=== PATIENT | female | born 1955 | race Caucasian/White ===

== ENCOUNTER 2017-09-10 16:38 | Emergency (ER) | payer OTHER ==
[~2017-09-10] VITALS: Ht 162.6 cm; Wt 69.4 kg
--- OUTSIDE RECORDS SUMMARY | ~2017-09-10 | XMS | Clinical Summary ---
Demographics + + + | Address | [address] | | | [place] [address] | + + + | Home Phone | | + + + | Preferred Language | Unknown | + + + | Marital Status | Single | + + + | Confucianism Affiliation | Unknown | + + + | Race | Unknown | + + + | Ethnic Group | Other Race | + + + Author + + + | Author | [facility] | + + + | Organization | [facility] | + + + | Address | Unknown | + + + | Phone | Unavailable | + + + Care Team Providers + +------+ + | Care Web Master Name | Role | Phone | + +------+ + PP | Unavailable | + +------+ + Source Comments ANGIE is fully live on both [facility] Amb[facility] and [facility] InPatient.[facility] Allergies Not on File Current Medications Not [...] | + + + + + | INFLUENZA VACCINE | | | | | (FLU SHOT) | 8 | | | + + + + + Results Not on filefrom Last 3 Months"
--- OUTSIDE RECORDS SUMMARY | ~2017-09-10 | XMS | Clinical Summary ---
Demographics + + + | Address | [address] | | | [place] [address] | + + + | Home Phone | | + + + | Preferred Language | Unknown | + + + | Marital Status | Single | + + + | Mormon Affiliation | Unknown | + + + | Race | Unknown | + + + | Ethnic Group | Other Race | + + + Author + + + | Author | [facility] | + + + | Organization | [facility] | + + + | Address | Unknown | + + + | Phone | Unavailable | + + + Care Team Providers + +------+ + | Care Raveler Name | Role | Phone | + +------+ + PP | Unavailable | + +------+ + Source Comments ANGIE is fully live on both [facility] Ambulatory and [facility] InPatient.[facility] Allergies Not on File Current Medications Not [...]
[~2017-09-10 16:38] MED LIST: ALLER-TEC10 MG PO; ASPIR-LOW81 MG PO; ASPIR-TRIN325 MG PO; BUDEPRION SR150 MG PO; BUSPIRONE HCL15 MG PO; BUSPIRONE HCL30 MG PO; CALCIUM 600 +1 EAC3 PO; DILTIAZEM 24HR240 MG PO; FIORINAL 50-321 EACH PO; FISH OIL 1,2001 EACH PO; FLUOXETINE HCL20 MG PO; K-TAB10 MEQ PO; LEVOTHYROXINE150 MCG PO; LORATADINE10 MG PO; MELOXICAM15 MG PO; MIRAPEX0.125 MG PO; NORCO 5-325 TA1 EACH PO; PRILOSEC20 MG PO; PULMICORT FLE180 MCG INH; TOPAMAX25 MG PO; TRAMADOL HCL50 MG PO; TRAZODONE HCL50 MG PO; VENTOLIN HFA18 GM INH; XANAX0.25 MG PO
[2017-09-10] MEDS ORDERED: LIOTHYRONINE SO5 MCG PO (17:03)
[2017-09-10] MEDS ORDERED: SUDAFED 12-HOU120 MG PO (17:05)
--- NOTE | 2017-09-11 06:53 | EKG ---
[facility] [address] [place], [place] [address] Signed Normal sinus rhythm Normal ECG No previous ECGs available Confirmed by SHUN LUONG MD ([id number]) on 09/11/2017 6:53:12 AM Electronically Signed By: SHUN LUONG MD 09/11/17 0653 PATIENT NAME: COLBY REA Electrocardiogram DATE OF : 51 PHYSICIAN: SHUN LUONG MD REPORT #: [id number] REPORT IS CONFIDENTIAL AND NOT TO BE RELEASED WITHOUT AUTHORIZATION
== END 2017-09-10 18:10 | disposition home or self-care (01) ==
LOC: ED 16:38
DX: G43.909 Migraine, unspecified, not intractable, without status migrainosus (principal); I10 Essential (primary) hypertension; Z88.8 Allergy status to other drugs, medicaments and biological substances; Z91.040 Latex allergy status; Z79.899 Other long term (current) drug therapy
CPT/HCPCS: 80053; 85025; 93005; 93010; 96374; 99283; J1885; J7030

== ENCOUNTER 2018-09-18 23:16 | Emergency (ER) | payer OTHER ==
[~2018-09-18] VITALS: Ht 162.6 cm; Wt 79.4 kg
--- OUTSIDE RECORDS SUMMARY | ~2018-09-18 | XMS | Clinical Summary ---
Demographics + + + | Address | [address] | | | [place] [address] | + + + | Home Phone | | + + + | Preferred Language | Unknown | + + + | Marital Status | Single | + + + | Gnosticism Affiliation | Unknown | + + + | Race | Unknown | + + + | Ethnic Group | Other Race | + + + Author + + + | Author | [facility] | + + + | Organization | [facility] | + + + | Address | Unknown | + + + | Phone | Unavailable | + + + Care Team Providers + +------+ + | Care Credit Or Loans Officer Name | Role | Phone | + +------+ + PP | Unavailable | + +------+ + Source Comments ANGIE is fully live on both [facility] Amb[facility] and [facility] InPatient.[facility] Allergies Not on File Current Medications Not on file Active Problems Not on file Social History + +-------+ +--------+------+ | Tobacco Use | Types | Packs/Day | Years | Date | | | | | Used | | + +-------+ +--------+------+ | Never Assessed | | | | | + +-------+ +--------+------+ + + + | Sex Assigned at | Date Recorded | | | | + + + | Not on file | | + + + Plan of Treatment + + + + + | Health Maintenance | Due Date | Last Done | Comments | + + + + + | Influenza (Flu) | | | | | vaccination (#1) | 8 | | | + + + + + | Pneumococcal (Adult) | | | | | (1 of 2 - PCV13) | 9 | | | + + + + + Results Not on filefrom Last 3 Months Insurance +-------+--------+ +------+ + + | Payer | Benefi | Subscriber | Type | Phone | Address | | | t Plan | ID | | | | | | / | | | | | | | Group | | | | | +-------+--------+ +------+ + + | MODA | MODA | [phone] | PPO | [phone] [address] [address] | | | [place] | | | [phone] | [place] [address] | | | [place] | | | | | +-------+--------+ +------+ + + + +--------+ +--------+ + + | Guarantor Name | Accoun | Relation to | Date | Phone | Billing Address | | | t Type | Patient | of | | | | | | | | | | + +--------+ +--------+ + + | CARLTON HORTON | Person | Self | [birth year] | Home: | [address] | | | al/[place] | | 4 | [phone] | [place] | | | [place] | | | [phone] | [phone] | + +--------+ +--------+ + +"
[~2018-09-18 23:16] MED LIST changes: +LIOTHYRONINE SO5 MCG PO; +SUDAFED 12-HOU120 MG PO
--- OUTSIDE RECORDS SUMMARY | 2018-09-18 23:18 | XMS ---
PreManage Notification: COLBY REA Security Commercial Lease Administrator Events No recent Security Events currently on file CRITERIA MET - [facility] CARE PROVIDERS Min Mejia Current PHONE: Unknown ordonya Case or Automotive Fleet Supervisor Current PHONE: Unknown Lori Siddiqi Current PHONE: Unknown Jyoti has no Care Guidelines for this patient. E.DPoornima VISIT COUNT (12 MO.) 1 RONNI Castillo TOTAL 1 NOTE: Visits indicate total known visits. ED/UCC VISIT TRACKING (12 MO.) 09/18/2018 23:17 RONNI Snell [place] TYPE: Emergency COMPLAINT: - VOMITING INPATIENT VISIT TRACKING (12 MO.) No inpatient visits to display in this time frame [email or web address]
[2018-09-18] MEDS ORDERED: ALENDRONATE SOD70 MG PO (23:23)
[2018-09-18] MEDS ORDERED: CAMBIA50 MG PO (23:24)
[2018-09-18] MEDS ORDERED: PULMICORT0.25 MG/2 INH (23:26)
[2018-09-18] MEDS ORDERED: TROKENDI XR25 MG PO (23:26)
[2018-09-18] MEDS ORDERED: RANITIDINE HCL150 M1 PO (23:26)
[2018-09-18] MEDS ORDERED: TRAMADOL HCL50 MG PO (23:27)
[2018-09-18] MEDS ORDERED: TRAZODONE HCL50 MG PO (23:27)
[2018-09-18] MEDS ORDERED: VENTOLIN HFA18 GM INH (23:27)
== END 2018-09-19 02:37 | disposition home or self-care (01) ==
LOC: ED 23:16
DX: K59.00 Constipation, unspecified (principal); R11.10 Vomiting, unspecified; R51 Headache; I10 Essential (primary) hypertension; Z91.040 Latex allergy status; Z88.8 Allergy status to other drugs, medicaments and biological substances; Z79.899 Other long term (current) drug therapy
CPT/HCPCS: 74177; 80053; 85025; 99284-25; J1885; J7030; Q9967

== ENCOUNTER 2019-03-20 22:12 | Emergency (ER) | payer MEDICARE, OTHER, MEDICAID ==
[~2019-03-20] VITALS: Ht 162.6 cm; Wt 79.4 kg
--- OUTSIDE RECORDS SUMMARY | ~2019-03-20 | XMS | Clinical Summary ---
Demographics + + + | Address | [address] | | | [place] [address] | + + + | Home Phone | | + + + | Preferred Language | Unknown | + + + | Marital Status | Single | + + + | Jehovah'S Witness Affiliation | Unknown | + + + | Race | Unknown | + + + | Ethnic Group | Other Race | + + + Author + + + | Author | [facility] | + + + | Organization | [facility] | + + + | Address | Unknown | + + + | Phone | Unavailable | + + + Care Team Providers + +------+ + | Care Tower Crane Operator Name | Role | Phone | + +------+ + PCP | Unavailable | + +------+ + Source Comments ANGIE is fully live on both [facility] Ambulatory and [facility] InPatient.[facility] Allergies Not on File Medications Not on [...] [place] | | 08-Pre | 4 | [address] | | | | [place] | | sent | | [place], | | | | | | | | [place] [address] | | +-------+--------+ +--------+ + +------+ + +--------+ +--------+ + + | Guarantor Name | Accoun | Relation to | Date | Phone | Billing Address | | | t Type | Patient | of | | | | | | | | | | + +--------+ +--------+ + + | Carlton Horton | Person | Self | [birth year] | [address] | | | al/Fam | | 1956 | [phone] | [place], [place] | | | neto | | | 0 (Home) | [address] | + +--------+ +--------+ + +"
--- OUTSIDE RECORDS SUMMARY | ~2019-03-20 | XMS | Clinical Summary ---
Demographics + + + | Address | [address] | | | [place] [address] | + + + | Home Phone | | + + + | Preferred Language | Unknown | + + + | Marital Status | Single | + + + | Christian Affiliation | Unknown | + + + | Race | Unknown | + + + | Ethnic Group | Other Race | + + + Author + + + | Author | [facility] | + + + | Organization | [facility] | + + + | Address | Unknown | + + + | Phone | Unavailable | + + + Care Team Providers + +------+ + | Care Drilling Manager Name | Role | Phone | + +------+ + PCP | Unavailable | + +------+ + Source Comments ANGIE is fully live on both [facility] Amb[facility] and [facility] InPatient.[facility] Allergies Not on File Medications Not on [...] [place] | | 08-Pre | 4 | [address] | | | | [place] | | sent | | [place], | | | | | | | | [place] [address] | | +-------+--------+ +--------+ + +------+ + [...] neto | | | 0 (Home) | [address] | + +--------+ +--------+ + +"
--- OUTSIDE RECORDS SUMMARY | ~2019-03-20 | XMS | Encounter Summary ---
Demographics + + + | Address | [address] | | | [place] [address] | + + + | Home Phone | | + + + | Preferred Language | Unknown | + + + | Marital Status | Single | + + + | Druze Affiliation | Unknown | + + + | Race | Unknown | + + + | Ethnic Group | Other Race | + + + Author + + + | Author | [facility] | + + + | Organization | [facility] | + + + | Address | Unknown | + + + | Phone | Unavailable | + + + Care Team Providers + +------+ + | Care Director Of Reimbursement Name | Role | Phone | + +------+ + PCP | Unavailable | + +------+ + Encounter Details +--------+ + + + + | Date | Type | Department | Care Team | Description | +--------+ + + + + | 02/04/ | Results | NON-[facility] | Jale[place], | | | 2008 | Only | Department | MD Mat Balderas | | | | | | Luda Krishnan | | | | | | [address] | | | | | | [address] | | | | | | [place], [place] | | | | | | [phone] | | | | | | | | +--------+ + + + + Social History + +-------+ +--------+------+ | Tobacco [...] recent travel history available. | + + documented as of this encounter Plan of Treatment Not on filedocumented as of this encounter Procedures + +--------+ + + + | Procedure Name | Priori | Date/Time | Associated Diagnosis | Comments | | | ty | | | | + +--------+ + + + | DERMATOPATHOLOGY(WET | Routin | 02/04/2009 | | Results for this | | MOUNT) | e | | | procedure are in the | | | | | | results section. | + +--------+ + + + documented in this encounter Results DERMATOPATHOLOGY(WET MOUNT) (02/04/2009) + + + + + + | Component | Value | Ref Range | Performed | Pathologist | | | | | At | Signature | + + + + + + | DERMATOPATH | SOURCE OF SPECIMEN:A | | | | | OLOGY(WET | FIRST TISSUE LEVEL IV | | | | | MNT) | [address] CLINICAL | | | | | | DESCRIPTION:Punch, rt. | | | | | | cheek, 3mm irregularly | | | | | | pigmented papule, please | | | | | | r/oatypia/malignancy. | | | | | | GROSS | | | | | | DESCRIPTION:Rt. cheek. | | | | | | The specimen is received | | | | | | in formalin, labeled | | | | | | cheek, with thepatient's | | | | | | name and consists of a | | | | | | hurtado and brown punch | | | | | | biopsy measuring 0.4 | | | | | | x0.3 cm. The specimen is | | | | | | bisected and entirely | | | | | | submitted in one | | | | | | cassette. | | | | | | MICROSCOPIC | | | | | | DESCRIPTION:There are | | | | | | multiple dilated, | | | | | | interconnected | | | | | | follicular infundibula. | | | | | | There isoverlying | | | | | | uniform epidermal | | | | | | hyperplasia with | | | | | | interanastomosis of | | | | | | reteridges tips and | | | | | | hyperpigmentation. In | | | | | | other foci, there is | | | | | | calciumdeposition within | | | | | | the dermis. | | | | | | DIAGNOSIS:SEBORRHEIC | | | | | | KERATOSIS. | | | | | | KPW:db02/09/09 My | | | | | | electronic signature | | | | | | indicates that I have | | | | | | personally reviewed | | | | | | alldiagnostic slides, | | | | | | the gross and/or | | | | | | microscopic portion of | | | | | | thisreport and | | | | | | formulated the final | | | | | | diagnosis. | | | | | | Rendering Diagnostician: | | | | | | Abraham Guo | | | | | | KeshavPathologistElectroni | | | | | | wanda Signed 02/09/2009 | | | | + + + + + + + + | Specimen | + + | Other | + + + + + + + | Performing | Address | City/State/Zipcode | Phone Number | | Organization | | | | + + + + + | [facility] | [address] | [place] [address] | | | PATHOLOGY | [address] | | | + + + + + documented in this encounter Visit Diagnoses Not on filedocumented in this encounter"
--- OUTSIDE RECORDS SUMMARY | ~2019-03-20 | XMS | Encounter Summary ---
Demographics + + + | Address | [address] | | | [place] [address] | + + + | Home Phone | | + + + | Preferred Language | Unknown | + + + | Marital Status | Single | + + + | Orthodox Affiliation | Unknown | + + + | Race | Unknown | + + + | Ethnic Group | Other Race | + + + Author + + + | Author | [facility] | + + + | Organization | [facility] | + + + | Address | Unknown | + + + | Phone | Unavailable | + + + Care Team Providers + +------+ + | Care Senior Accounts Payable Clerk Name | Role | Phone | + [...] [address] | | | | | | [place], [place] | | | | | | [phone] | | | | | | | [...] | | | | | M[place]) | [address] CLINICAL | | | | | | [...] | + + + + + | [facility] | [address] | [place] [address] | | | PATHOLOGY | [address] | | | + + + + + documented in this encounter Visit Diagnoses Not on filedocumented in this encounter"
[~2019-03-20 22:12] MED LIST changes: +ALENDRONATE SOD70 MG PO; +CAMBIA50 MG PO; +PULMICORT0.25 MG/2 INH; +RANITIDINE HCL150 M1 PO; +TROKENDI XR25 MG PO
[2019-03-20] MEDS ORDERED: ONDANSETRON ODT4 MG SL (23:32)
== END 2019-03-21 00:47 | disposition home or self-care (01) ==
LOC: ED 22:12
DX: E86.0 Dehydration (principal); R11.2 Nausea with vomiting, unspecified; R19.7 Diarrhea, unspecified; I10 Essential (primary) hypertension; E03.9 Hypothyroidism, unspecified; Z91.040 Latex allergy status; Z88.1 Allergy status to other antibiotic agents; Z79.899 Other long term (current) drug therapy
CPT/HCPCS: 80053; 85025; 87502; 96361; 96374; 99284-25; J1885; J7030

== ENCOUNTER 2019-03-23 05:35 | Emergency (ER) | payer MEDICARE, OTHER, MEDICAID ==
[~2019-03-23] VITALS: Ht 162.6 cm; Wt 79.4 kg
--- OUTSIDE RECORDS SUMMARY | ~2019-03-23 | XMS | Clinical Summary ---
Demographics + + + | Address | [address] | | | [place] [address] | + + + | Home Phone | | + + + | Preferred Language | Unknown | + + + | Marital Status | Single | + + + | Nondenominational Affiliation | Unknown | + + + | Race | Unknown | + + + | Ethnic Group | Other Race | + + + Author + + + | Author | [facility] | + + + | Organization | [facility] | + + + | Address | Unknown | + + + | Phone | Unavailable | + + + Care Team Providers + +------+ + | Care Policy Writer Sales Name | Role | Phone | + +------+ + PCP | Unavailable | + +------+ + Source Comments ANGIE is fully live on both [facility] Ambulatory and [facility] InPatient.[facility] Allergies Not on File Medications Not on file Active Problems Not [...] on file | | + + + + + + + | Job Start Date | Occupation | Industry | + + + + | Not on file | Not on file | Not on file | + + + + + + + + | Travel History | Travel Start | Travel End | + + + + + + | No recent travel history available. | + + Last Filed Vital Signs Not on file Plan of Treatment + + + + + | Health Maintenance | Due Date | Last Done | Comments | + + + + + | Pneumococcal | | | | | vaccination (1 of 2 | 9 | | | | - PCV13) | | | | + + + + + | Influenza (Flu) | | | | | vaccination (#1) | 9 | | | + + + + + Results Not on filefrom Last 3 Months Insurance +-------+--------+ +--------+ + +------+ | Payer | Benefi | Subscriber | Effect | Phone | Address | Type | | | t Plan | ID | freddie | | | | | | / | | Dates | | | | | | Group | | | | | | +-------+--------+ +--------+ + +------+ | MODA | MODA | [phone] | 08/21/19 | [phone] | [address] | PPO | | | [place] | | 08-Pre | 4 | [phone] | | | | [place] | | sent | | [place], | | | | | | | | [place] [address] | | +-------+--------+ +--------+ + +------+ + +--------+ +--------+ + + | Guarantor Name | Accoun | Relation to | Date | Phone | Billing Address | | | t Type | Patient | of | | | | | | | | | | + +--------+ +--------+ + + | Cralton Horton | Person | Self [birth year] | [address] | | | al/Fam | | 1956 | [phone] | [place], [place] | | | neto | | | 0 (Home) | [address] | + +--------+ +--------+ + +"
--- OUTSIDE RECORDS SUMMARY | ~2019-03-23 | XMS | Encounter Summary ---
Demographics + + + | Address | [address] | | | [place] [address] | + + + | Home Phone | | + + + | Preferred Language | Unknown | + + + | Marital Status | Single | + + + | Rastafari Affiliation | Unknown | + + + | Race | Unknown | + + + | Ethnic Group | Other Race | + + + Author + + + | Author | [facility] | + + + | Organization | [facility] | + + + | Address | Unknown | + + + | Phone | Unavailable | + + + Care Team Providers + +------+ + | Care Aerobics Teacher Name | Role | Phone | + [...] [address] | | | | | | [place], [place] | | | | | | [phone] | | | | | | | [...] | | | | | [place]) | [address] CLINICAL | | | | | | [...] | + + + + + | [facility] | [address] | [place] [address] | | | PATHOLOGY | [address] | | | + + + + + documented in this encounter Visit Diagnoses Not on filedocumented in this encounter"
--- OUTSIDE RECORDS SUMMARY | ~2019-03-23 | XMS | Clinical Summary ---
Demographics + + + | Address | [address] | | | [place] [address] | + + + | Home Phone | | + + + | Preferred Language | Unknown | + + + | Marital Status | Single | + + + | Mosque Affiliation | Unknown | + + + | Race | Unknown | + + + | Ethnic Group | Other Race | + + + Author + + + | Author | [facility] | + + + | Organization | [facility] | + + + | Address | Unknown | + + + | Phone | Unavailable | + + + Care Team Providers + +------+ + | Care Cesspool Cleaner Name | Role | Phone | + +------+ + PCP | Unavailable | + +------+ + Source Comments ANGIE is fully live on both [facility] Ambulatory and [facility] InPatient.[facility] & [facility] Allergies Not on File Medications Not on [...] [place] | | 08-Pre | 4 | [phone] | | | | [place] | | sent | | [place], | | | | | | | | [place] [address] | | +-------+--------+ +--------+ + +------+ + [...] neto | | | 0 (Home) | [address] | + +--------+ +--------+ + +"
--- OUTSIDE RECORDS SUMMARY | ~2019-03-23 | XMS | Encounter Summary ---
Demographics + + + | Address | [address] | | | [place] [address] | + + + | Home Phone | | + + + | Preferred Language | Unknown | + + + | Marital Status | Single | + + + | Jain Affiliation | Unknown | + + + | Race | Unknown | + + + | Ethnic Group | Other Race | + + + Author + + + | Author | [facility] | + + + | Organization | [facility] | + + + | Address | Unknown | + + + | Phone | Unavailable | + + + Care Team Providers + +------+ + | Care Cloth Brushing And Sueding Supervisor Name | Role | Phone | + [...] [address] | | | | | | [place], [place] | | | | | | [address] | | | | | | | [...] | | | | | [place]) | [address] CLINICAL | | | | | | [...] | + + + + + | [facility] | [address] | [place] [address] | | | PATHOLOGY | [address] | | | + + + + + documented in this encounter Visit Diagnoses Not on filedocumented in this encounter"
[~2019-03-23 05:35] MED LIST changes: +ONDANSETRON ODT4 MG SL
--- OUTSIDE RECORDS SUMMARY | 2019-03-23 05:38 | XMS ---
PreManage Notification: COLBY REA Security Professor Of Fine Art Events No recent Security Events currently on file CRITERIA MET - [facility] - 2 Visits in 30 Days CARE PROVIDERS JAM PEÑA Physician Sock Liner 09/19/2018-Current PHONE: Unknown Min Mejia MD PHONE: Unknown ordonya Case or Edge Bonder Current PHONE: Unknown Lori Siddiqi Current PHONE: Unknown Jyoti has no Care Guidelines for this patient. Abril VISIT COUNT (12 MO.) 3 RONNI Castillo TOTAL 3 NOTE: Visits indicate total known visits. ED/UCC VISIT TRACKING (12 MO.) 03/23/2019 05:35 RONNI Snell [place] TYPE: Emergency COMPLAINT: - SOB 03/20/2019 22:12 RONNI Snell [place] TYPE: Emergency COMPLAINT: - N V, HEAD AND BODY ACHES DIAGNOSES: - Essential (primary) hypertension - Latex allergy status - Allergy status to other antibiotic agents status - Nausea with vomiting, unspecified - Other jail (current) drug therapy - Dehydration - Hypothyroidism, unspecified - Diarrhea, unspecified 09/18/2018 23:17 RONNI Snell [place] TYPE: Emergency COMPLAINT: - VOMITING DIAGNOSES: - Latex allergy status - Essential (primary) hypertension - Other rn long term care (current) drug therapy - Vomiting, unspecified - Constipation, unspecified - Allergy status to oth drug/meds/biol subst status - Headache INPATIENT VISIT TRACKING (12 MO.) No inpatient visits to display in this time frame [id number]
[2019-03-23] MEDS ORDERED: POTASSIUM CHLO20 ME1 PO (07:07)
[2019-03-23] MEDS ORDERED: PROMETHAZINE HC25 M1 PO (10:59)
== END 2019-03-23 11:16 | disposition home or self-care (01) ==
LOC: ED 05:35
DX: E87.6 Hypokalemia (principal); E83.42 Hypomagnesemia; I10 Essential (primary) hypertension; E03.9 Hypothyroidism, unspecified; Z91.040 Latex allergy status; Z88.1 Allergy status to other antibiotic agents; Z79.899 Other long term (current) drug therapy
CPT/HCPCS: 80053; 81001; 83735; 84443; 85025; 96361; 96365; 96366; 96368; 96375; 99285-25; J2550; J2765; J3475; J3480; J7030; J7060

== ENCOUNTER 2020-08-01 08:30 | Emergency (ER) | payer MEDICARE, MEDICAID ==
[~2020-08-01] VITALS: Ht 162.6 cm; Wt 83.9 kg
[~2020-08-01 08:30] MED LIST changes: +POTASSIUM CHLO20 ME1 PO; +PROMETHAZINE HC25 M1 PO
--- OUTSIDE RECORDS SUMMARY | 2020-08-01 08:34 | XMS ---
PreManage Notification: COLBY REA Security Wool Cleaner Events No recent Security Events currently on file CRITERIA MET - PDMP CARE PROVIDERS JAM PEÑA Physician Hand Stemmer 09/19/2018-Current PHONE: Unknown Jyoti has no Care Guidelines for this patient. ENeri VISIT COUNT (12 MO.) 1 RONNI Castillo TOTAL 1 NOTE: Visits indicate total known visits. ED/UCC VISIT TRACKING (12 MO.) 08/01/2020 08:32 RONNI Snell [place] TYPE: Emergency COMPLAINT: - LT LEG PAIN INPATIENT VISIT TRACKING (12 MO.) No inpatient visits to display in this time frame [id number]
[2020-08-01] MEDS ORDERED: BUPROPION XL450 MG PO (08:56)
[2020-08-01] MEDS ORDERED: CETIRIZINE HCL10 M1 PO (08:57)
[2020-08-01] MEDS ORDERED: FAMOTIDINE20 MG PO (08:57)
[2020-08-01] MEDS ORDERED: GABAPENTIN300 MG PO (08:57)
[2020-08-01] MEDS ORDERED: AZELASTIN-FLUTI23 GM NS (08:58)
[2020-08-01] MEDS ORDERED: PULMICORT FLEX90 MCG INH (08:59)
== END 2020-08-01 09:21 | disposition home or self-care (01) ==
LOC: ED 08:30
DX: S80.12XA Contusion of left lower leg, initial encounter (principal); I10 Essential (primary) hypertension; E03.9 Hypothyroidism, unspecified; J45.909 Unspecified asthma, uncomplicated; Z91.040 Latex allergy status; Z88.8 Allergy status to other drugs, medicaments and biological substances; Z79.899 Other long term (current) drug therapy; W22.8XXA Striking against or struck by other objects, initial encounter
CPT/HCPCS: 99283

== ENCOUNTER 2021-06-04 05:45 | Day surgery (SDC) | payer MEDICARE, MEDICAID ==
[~2021-06-04] VITALS: Ht 162.6 cm; Wt 78.0 kg
--- NOTE | ~2021-06-04 | OR ---
[facility] [address] [place], [place] [address] Draft DATE OF OPERATION: 06/04/2021 SURGEON: Tung Mejia MD PREOPERATIVE DIAGNOSIS: Rotator cuff tear, left shoulder. POSTOPERATIVE DIAGNOSIS: Rotator cuff tear, left shoulder. PROCEDURES PERFORMED: Left shoulder arthroscopy with subacromial decompression, rotator cuff repair. SENIOR PRINCIPAL ARCHITECT: None. ANESTHESIA: General. BLOOD LOSS: Minimal. IMPLANTS: One 4.75 SwiveLock with FiberTape. BRIEF HISTORY: Carlton is a 65-year-old female with painful shoulder that failed nonoperative treatment. MRI was consistent with a small rotator cuff tear in the anterior supraspinatus. Risks and benefits of operative treatment were discussed with her. DESCRIPTION OF PROCEDURE: When she consented, she was taken to the operating room. After adequate anesthesia, she was placed in the beach chair position. All downside pressure points well padded. The right arm was placed in well-padded arm contreras. The left arm was then prepped and draped in a standard sterile fashion. The shoulder was injected with 15 mL 0.25% Marcaine with epinephrine as was the subacromial space. The standard posterior portal was made and the scope was introduced in the shoulder. ARTHROSCOPIC FINDINGS: The glenohumeral surfaces were intact biceps. Biceps anchor and labrum were intact. PATIENT NAME: CARLTON REA OPERATIVE REPORT DATE OF : 51 REPORT #: [id number] PHYSICIAN: TUNG MEJIA MD PCP: JAM PEÑA REPORT IS CONFIDENTIAL AND NOT TO BE RELEASED WITHOUT AUTHORIZATION [facility] [address] [facility] [place] [place] [address] [address] The supraspinatus was intact. There was a tear of the supraspinatus just posterior to the biceps extending about a cm. This was 90% to 95% complete. There was no retraction. The subacromial space showed minimal thickening and bursitis. The rent was noted in the rotator cuff. DESCRIPTION OF OPERATION: Diagnostic arthroscopy was undertaken as noted above. The subacromial bursoscopy was undertaken and the bursa was removed. The rotator cuff tear was debrided and taken back to healthy tissue. The tuberosity was then cleared of soft tissue down to a bleeding decorticated bed. Once this was accomplished, the FiberTape suture was placed in inverted mattress configuration through the tear. This was then placed through the anchor and anchor was deployed at the tuberosity. Once this was accomplished, the fluid was shut off. Good bleeding was noted from the anchor and surrounding tissues. The suture ends were cut off and the scope was withdrawn poor. The portals were closed with 3-0 nylon and dressed with Allevyn dressing and OpSite's. She tolerated the procedure well. All sponge, needle, and instrument counts were correct. Tung Mejia MD BA/JUAQUINL /[id number] Copies: ~ PATIENT NAME: CARLTON REA OPERATIVE REPORT DATE OF : 51 REPORT #: [id number] PHYSICIAN: TUNG MEJIA MD PCP: JAM PEÑA REPORT IS CONFIDENTIAL AND NOT TO BE RELEASED WITHOUT AUTHORIZATION
[~2021-06-04 05:45] MED LIST changes: +AZELASTIN-FLUTI23 GM NS; +BUPROPION XL450 MG PO; +CETIRIZINE HCL10 M1 PO; +FAMOTIDINE20 MG PO; +GABAPENTIN300 MG PO; +MOBIC15 MG PO; +PULMICORT FLEX90 MCG INH; +ULTRAM50 MG PO; +ZOLOFT25 MG PO
[2021-06-04] MEDS ORDERED: HYDROCODON-ACE1 EA11 PO (08:00)
--- NOTE | 2021-06-04 08:14 | NUR ---
06/04/21 0814 Erin Corcoran 0758 PT ARRIVED TO PACU ON 8L VIA MASK, PT WAKES TO TACTILE STIMULI AND DENIES PAIN. PT EASILY FALLS BACK TO SLEEP. 0806 PT WAKES TO TACTILE STIMULI AND O2 REMOVED. 0810 PT REORIENTED TO PACU AND REPORTS BEING COLD WARM BLACKETS GIVEN.
--- NOTE | 2021-06-04 09:50 | NUR ---
PT IS RESTING WIHT EYES CLOSED WHEN I ENTERED ROOM, WOKE TO VERBAL STIMULI AND REQUESTED WATER. PT SIPPING WATER WITHOUT DIFFICULTY. STATES SHE CAN NOW MOVE HER FINGERS ON THE LEFT ARM A LITTLE. PT STILL APPEARS DROWSY.
== END 2021-06-04 11:49 | disposition home or self-care (01) ==
LOC: DS 05:45
PROVIDERS: ATTEND Specialist
PROC: 0RNK4ZZ Release Left Shoulder Joint, Percutaneous Endoscopic Approach (ICD-10-PCS; 2021-06-04)
PROC: 0LQ24ZZ Repair Left Shoulder Tendon, Percutaneous Endoscopic Approach (ICD-10-PCS; principal; 2021-06-04 06:45)
DX: M75.112 Incomplete rotator cuff tear or rupture of left shoulder, not specified as traumatic (principal); M75.52 Bursitis of left shoulder; M75.42 Impingement syndrome of left shoulder; G89.18 Other acute postprocedural pain; J45.909 Unspecified asthma, uncomplicated; E89.0 Postprocedural hypothyroidism; M81.0 Age-related osteoporosis without current pathological fracture; M19.90 Unspecified osteoarthritis, unspecified site; K21.9 Gastro-esophageal reflux disease without esophagitis; I10 Essential (primary) hypertension; G43.909 Migraine, unspecified, not intractable, without status migrainosus; F32.A Depression, unspecified; K59.00 Constipation, unspecified; F12.90 Cannabis use, unspecified, uncomplicated; Z88.4 Allergy status to anesthetic agent; Z91.040 Latex allergy status; Z91.048 Other nonmedicinal substance allergy status
CPT/HCPCS: 00450; 64415; 76942; J0690; J1100; J1885; J2001; J2250; J2405; J2704

== ENCOUNTER 2022-05-08 13:04 | Emergency (ER) | payer MEDICARE, MEDICAID ==
[~2022-05-08] VITALS: Ht 162.6 cm; Wt 77.6 kg
[~2022-05-08 13:04] MED LIST changes: +HYDROCODON-ACE1 EA11 PO
--- OUTSIDE RECORDS SUMMARY | 2022-05-08 13:08 | XMS ---
PreManage Notification: COLBY REA Security Graphics Coordinator Events No recent Security Events currently on file CRITERIA MET - PDMP CARE PROVIDERS JAM PEÑA Physician Skidder Loader 09/19/2018-Current PHONE: Unknown Jyoti has no Care Guidelines for this patient. ENeri VISIT COUNT (12 MO.) 1 RONNI Castillo TOTAL 1 NOTE: Visits indicate total known visits. ED/UCC VISIT TRACKING (12 MO.) 05/08/2022 13:05 RONNI Snell OR TYPE: Emergency COMPLAINT: - COLD SYMPTOMS INPATIENT VISIT TRACKING (12 MO.) No inpatient visits to display in this time frame [id number]
[2022-05-08] MEDS ORDERED: AMOX TR-K CLV1 EAC1 PO (17:33)
== END 2022-05-08 17:48 | disposition home or self-care (01) ==
LOC: ED 13:04
DX: J01.90 Acute sinusitis, unspecified (principal); B96.89 Other specified bacterial agents as the cause of diseases classified elsewhere; J45.909 Unspecified asthma, uncomplicated; Z20.822 Contact with and (suspected) exposure to COVID-19; Z88.4 Allergy status to anesthetic agent; Z91.040 Latex allergy status; Z79.899 Other long term (current) drug therapy
CPT/HCPCS: 87502; U0003

== ENCOUNTER 2024-07-26 07:58 | Day surgery (SDC) | payer MEDICARE ==
[~2024-07-26] VITALS: Ht 162.6 cm; Wt 86.4 kg
[~2024-07-26 07:58] MED LIST changes: +AMOX TR-K CLV1 EAC1 PO; +BUPROPION XL150 MG PO; +IBLOOD GLUCOSE TEST STRIP 1 EA TEST VI PRN; +LACTATED RINGER'S 1,000 ML IV SCH; +LEVOTHYROXINE125 MC1 PO; +LIDOCAINE HCL 1% 5 ML SDV INJ ONE; +MIDAZOLAM HCL 5 MG/5 ML VIAL IV PRN; +OMEPRAZOLE20 MG PO; +PRAMIPEXOLE0.125 MG PO; -ULTRAM50 MG PO; +fentaNYL citrate 100 MCG/2 ML VIAL IV PRN
[2024-07-26 08:13] VITALS: BP 127/67
[2024-07-26] MEDS ORDERED: fentaNYL citrate 100 MCG/2 ML VIAL ONE (09:14)
[2024-07-26] MEDS ORDERED: MIDAZOLAM HCL 5 MG/5 ML VIAL ONE (09:14)
--- NOTE | 2024-07-26 10:00 | NUR ---
07/26/24 1000 Sheets,Erin 0997 PT ARRIVED TO PACU, PT OPENS HER EYES BUT SHE IS VERY DROWSY AND EASILY FALLS BACK TO SLEEP. VSS. 0955 PT WAKES TO MD VERBAL STIMULI, PT DENIES CONCERNS AND EASILY FALLS BACK TO SLEEP WITH SMALL AMOUNT OF SNORING.
[2024-07-26 10:31] VITALS: BP 116/78
--- NOTE | 2024-07-30 13:16 | OR ---
[facility] [address] [place], [place] [address] Signed DATE OF OPERATION: 07/26/2024 SURGEON: Rei Vickers MD PREOPERATIVE DIAGNOSES: 1. History of hyperplastic polyp 2014 and known diverticulosis. 2. Episodic constipation. POSTOPERATIVE DIAGNOSES: Sigmoid and left-sided diverticulosis. No evidence of polyps. PROCEDURE: Total colonoscopy to cecum. ANESTHESIA: Intravenous sedation; fentanyl 100 mcg and Versed 4 mg. INDICATION: This 68-year-old white woman is a patient of TYE Zhang. She last underwent colonoscopy by me in 2014 at which time, she was found to have a hyperplastic polyp and diverticulosis. She is generally asymptomatic, though does have episodic constipation. She has had no blood per rectum. She does have family history of colon cancer in a maternal grandfather. She is admitted at this time to undergo screening colonoscopy. She understands the risk of bleeding, infection, and perforation. FINDINGS: The prep was good. Complete colonoscopy was undertaken of the cecum. She had numerous diverticula of the sigmoid and left colon and scattered diverticula elsewhere. She had no evidence of polyps, colitis, or other abnormality. DESCRIPTION OF PROCEDURE: The patient was brought to the endoscopy suite and placed in the lateral decubitus position, given intravenous sedation to the point of slurred speech and nystagmus. Digital rectal examination was normal. An Olympus video colonoscope was passed in the rectum and manipulated into the sigmoid where numerous diverticula were noted. Scope was advanced beyond this ultimately to the cecum. The cecum was well visualized and not fully intubated. Mucosa was elevated and found to have no abnormalities. The scope was then withdrawn and examination throughout showed only scattered diverticula of the right transverse and left colon and dense Electronically Signed By: REI VICKERS MD 07/30/24 1316 PATIENT NAME: COLBY REA OPERATIVE REPORT DATE OF : 51 REPORT #: [id number] PHYSICIAN: REI VICKERS MD PCP: JAM KILPATRICK REPORT IS CONFIDENTIAL AND NOT TO BE RELEASED WITHOUT AUTHORIZATION [facility] [address] [place], [place] [address] Signed diverticulosis of the sigmoid. Retroflexed view of the rectum was normal. Scope was removed and the patient was taken to the recovery room in good condition. CONCLUDING DIAGNOSIS: Diverticulosis. No evidence of polyps. PLAN: Recommend repeat colonoscopy in 10 years if clinically appropriate, sooner if symptoms should develop. Recommend high-fiber diet too. She will return to the ongoing care of Jam Kilpatrick. MD FROYLAN Graham/VALENTINA /[id number] cc: TYE Zhang Copies: JAM KILPATRICK ~ Electronically Signed By: REI VICKERS MD 07/30/24 1316 PATIENT NAME: COLBY REA OPERATIVE REPORT DATE OF : 51 REPORT #: [id number] PHYSICIAN: REI VICKERS MD PCP: JAM KILPATRICK REPORT IS CONFIDENTIAL AND NOT TO BE RELEASED WITHOUT AUTHORIZATION
== END 2024-07-26 10:44 | disposition home or self-care (01) ==
LOC: OPS 07:58 → DS 07:59 → OPS 09:00
PROVIDERS: ATTEND Surgery
PROC: 0DJD8ZZ Inspection of Lower Intestinal Tract, Via Natural or Artificial Opening Endoscopic (ICD-10-PCS; principal; 2024-07-26 09:00)
DX: Z12.11 Encounter for screening for malignant neoplasm of colon (principal); K57.30 Diverticulosis of large intestine without perforation or abscess without bleeding; J44.9 Chronic obstructive pulmonary disease, unspecified; E89.0 Postprocedural hypothyroidism; K21.9 Gastro-esophageal reflux disease without esophagitis; Z86.0102 Personal history of hyperplastic colon polyps; Z79.890 Hormone replacement therapy; Z79.899 Other long term (current) drug therapy; K59.09 Other constipation; Z88.0 Allergy status to penicillin; Z88.4 Allergy status to anesthetic agent; Z91.040 Latex allergy status; Z90.49 Acquired absence of other specified parts of digestive tract; Z80.0 Family history of malignant neoplasm of digestive organs
CPT/HCPCS: 99153; G0500; J2250; J3010; J7121